=== PATIENT | male | born 1960 | race African-American/Black ===

== ENCOUNTER 2019-11-22 16:00 | Emergency (ER) | payer OTHER ==
[~2019-11-22] VITALS: Ht 180.3 cm; Wt 70.3 kg
[2019-11-22 16:49] LABS: HEMATOCRIT 42.7 % (42.0-52.0); HEMOGLOBIN 14.7 gm/dL (14.0-18.0); MCH 35.1 pg (26.0-34.0); MCHC 34.4 g/dL (28.0-37.0); MCV 102.1 fL (80.0-100.0); RBC 4.18 mil/uL (4.50-6.00); RDW 12.3 % (10.5-14.5); WBC 6.7 thou/uL (4.0-11.0)
[2019-11-22 16:57] LABS: ANION GAP 12 mmol/L (7-16); BUN 18 mg/dL (7-18); CALCIUM 8.9 mg/dL (8.5-10.1); CHLORIDE 102 mmol/L (98-107); CO2 25 mmol/L (21-32); CREATININE 1.2 mg/dL (0.7-1.3); GLUCOSE 137 mg/dL (74-106); POTASSIUM 3.7 mmol/L (3.5-5.1); SODIUM 139 mmol/L (136-145)
[2019-11-22 17:07] LABS: MAGNESIUM 1.8 mg/dL (1.8-2.4); TROPONIN-I <0.06 ng/mL (<0.06)
[2019-11-22 19:52] VITALS: BP 166/92
== END 2019-11-22 19:55 | disposition home or self-care (01) ==
LOC: ER 16:00
PROVIDERS: Emergency Medicine
DX: R56.9 Unspecified convulsions (principal); I10 Essential (primary) hypertension; K21.9 Gastro-esophageal reflux disease without esophagitis; F17.210 Nicotine dependence, cigarettes, uncomplicated; B20 Human immunodeficiency virus [HIV] disease

== ENCOUNTER → 2020-01-08 | Outpatient (CLI) | payer OTHER | LOC: MRI 08:19 | PROVIDERS: ATTEND Psychiatry & Neurology Neurology | DX: G40.909 Epilepsy, unspecified, not intractable, without status epilepticus (principal) ==

== ENCOUNTER → 2020-02-03 | Outpatient (CLI) | payer OTHER ==
--- NOTE | ~2020-02-03 | EEG ---
[facility] [place] [address] ELECTROENCEPHALOGRAM Name: HANNAH KIMBALL Room #: REG SOURAV Beatriz.#: [id number] Admission: 02/03/20 Attend Phys: Mary Alice Melara DO Discharge: Date of : 56 Report #: [id number] THIS REPORT FOR: //name// DATE OF SERVICE: 02/03/2020 This patient is being evaluated for the possibility of seizure. EEG was done by placing the electrode by standard 10-20 system of electrode placement. Both referential and sequential montages were used for recording. Background activity in this patient's EEG is about 10 Hz and 30 microvolt. This is a symmetrical activity. Photic stimulation is unremarkable. The patient became drowsy and that is associated with bilateral slowing and vertex sharp waves. Throughout the record, no active epileptiform activity was noticed. IMPRESSION: This patient's EEG is within normal limits. Thank you very much for this referral. By: 1800 00 Darion Platt MD /sebastien
== END ==
LOC: NEURO 09:28
PROVIDERS: ATTEND Psychiatry & Neurology Neurology
DX: G40.909 Epilepsy, unspecified, not intractable, without status epilepticus (principal)